=== PATIENT | female | born 1950 | race Hispanic/Latino ===

== ENCOUNTER 2018-03-12 00:41 | Emergency (ER) | payer OTHER ==
[2018-03-12 01:24] LABS: BASOPHILS % (AUTO) 0.8 % (0.0-5.0); EOSINOPHILS % (AUTO) 1.5 % (0.0-8.0); HEMATOCRIT 46.6 % (36-48); LYMPHOCYTES % (AUTO) 26.3 % (21.0-51.0); MEAN CORPUSCULAR HEMOGLOBIN 30.2 pg (27.0-33.0); MEAN CORPUSCULAR HGB CONC 33.5 g/dL (32.0-36.0); MEAN CORPUSCULAR VOLUME 90.2 fL (79-99); MONOCYTES % (AUTO) 6.8 % (3.0-13.0); NEUTROPHILS % (AUTO) 64.6 % (40.0-77.0); NUCLEATED RED BLOOD CELLS 0.1 % (0.0-0.19); PLATELET COUNT (AUTO) 175 K/uL (130-400); RED BLOOD CELL COUNT(AUTO) 5.16 MIL/uL (4.00-5.50); RED CELL DISTRIBUTION WIDTH 13.3 % (11.0-15.5); WHITE BLOOD COUNT (AUTO) 10.7 K/uL (4.8-10.8)
[2018-03-12 01:25] LABS: CREATININE 0.6 mg/dL (0.5-1.5); POTASSIUM 5.4 mmol/L (3.5-5.1)
[2018-03-12] MEDS ORDERED: SODIUM POLYSTYRENE SULFONATE 15 GM/60 ML ML ONE (01:33)
[2018-03-12 01:38] LABS: BILIRUBIN,URINE Negative (NEGATIVE); COLOR,URINE Yellow (YELLOW); GLUCOSE, URINE (UA) 250 mg/dL (NEGATIVE); KETONES,URINE Negative (NEGATIVE); LEUKOCYTE ESTERASE ,URINE Small (NEGATIVE); NITRATE,URINE Negative (NEGATIVE); OCCULT BLOOD,URINE Negative (NEGATIVE); PROTEIN,URINE Negative (NEGATIVE)
[2018-03-12 01:40] LABS: APPEARANCE,URINE SLIGHTLY CLOUDY (CLEAR)
[2018-03-12 01:41] LABS: BACTERIA,URINE Few /HPF (None Seen); RBC,URINE 0-1 /HPF (0-1); SQUAMOUS EPITHELIAL CELL,UR Rare /HPF (0-2)
[2018-03-12] MEDS ORDERED: CEFTRIAXONE SODIUM 1 GM ONE (01:50)
[2018-03-12] MEDS ORDERED: ACETAMINOPHEN-CODEINE ELIXIR 5 ML UDCUP ONE (01:50)
== END 2018-03-12 02:21 | disposition home or self-care (01) ==
LOC: EDH 00:41
DX: N39.0 Urinary tract infection, site not specified (principal); E11.9 Type 2 diabetes mellitus without complications; Z90.49 Acquired absence of other specified parts of digestive tract; Z90.710 Acquired absence of both cervix and uterus; Z98.890 Other specified postprocedural states
CPT/HCPCS: 36415; 80048; 81001; 85025; 96374; 99284; J0696

== ENCOUNTER → 2019-08-27 | Outpatient (CLI) | payer OTHER | END | disposition home or self-care (01) | LOC: OIH 13:31 | PROVIDERS: ATTEND Family Medicine | DX: I10 Essential (primary) hypertension (principal) | CPT/HCPCS: 71046 ==

== ENCOUNTER → 2023-09-28 | Outpatient (CLI) | payer OTHER | END | disposition home or self-care (01) | LOC: RAH 08:47 | PROVIDERS: ATTEND Internal Medicine | DX: Z12.31 Encounter for screening mammogram for malignant neoplasm of breast (principal) | CPT/HCPCS: 77067 ==

== ENCOUNTER → 2023-11-17 | Outpatient (CLI) | payer OTHER | END | disposition home or self-care (01) | LOC: RAH 09:37 | PROVIDERS: ATTEND Internal Medicine | DX: M48.062 Spinal stenosis, lumbar region with neurogenic claudication (principal); M47.816 Spondylosis without myelopathy or radiculopathy, lumbar region; M51.36 Other intervertebral disc degeneration, lumbar region | CPT/HCPCS: 72148 ==

== ENCOUNTER → 2024-01-24 | Outpatient (CLI) | payer OTHER | END | disposition home or self-care (01) | LOC: RAH 14:14 | PROVIDERS: ATTEND Internal Medicine | DX: M81.0 Age-related osteoporosis without current pathological fracture (principal) | CPT/HCPCS: 77080 ==

== ENCOUNTER 2024-12-06 17:25 | Inpatient (IN) | payer OTHER ==
[~2024-12-06] VITALS: Ht 154.9 cm; Wt 91.6 kg
--- NOTE | 2024-12-06 17:32 | ERN ---
ED Note History of Present Illness Stated Complaint: ALLERGIC REACTION Chief Complaint: Allergic Reaction Time Seen by MD: 17:26 Time Seen by Midlevel: 17:30 Dictation: Ms. Crowe is a 74 year old female with history of obesity, hypertension and type II DM who was transported via EMS to the Emergency Department this evening for evaluation following allergic reaction. She states that she had been experiencing 24 hours of chills, fatigue, general weakness, and cough. She states that multiple family members also with upper respiratory symptoms. She decided to take another person's Amoxicillin 15ml despite history of penicillin allergy. She developed shortness of breath, nausea, and flushing of the skin. EMS was called and they administered doses Benadryl and Epi. She states she is feeling better at this time. Vital signs are stable. No angioedema; airway patent. Voice clear. No wheezing. She denies fever, chest pain, palpitations, edema, abdominal pain, vomiting, hematemesis, constipation, diarrhea, melena, hematochezia, dysuria, headache, dizziness, or focal weakness/paresthesia. UPDATE: She is now complaining of bilateral hip and left shoulder pain after a fall at home. X-rays ordered. 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 Reports 24 hours of "feeling ill". Reports fatigue, general weakness, and chills. She mentions several family members with upper respiratory infection symptoms. EYES: Patient denies any visual symptoms. EARS, NOSE, AND THROAT: No difficulties with hearing. No symptoms of rhinitis or sore throat. CARDIOVASCULAR: Patient denies chest pains, palpitations, orthopnea and paroxysmal nocturnal dyspnea. RESPIRATORY Reports nonproductive cough x 24 hours. Reports shortness of breath and wheezing after taking amoxicillin. GI: No vomiting, diarrhea, constipation, abdominal pain, hematochezia or melena. Reported nausea. : No urinary hesitancy or dribbling. No nocturia or urinary frequency. No abnormal urethral discharge. MUSCULOSKELETAL: She is reporting pain to both hips as well as left shoulder after a fall earlier today. NEUROLOGIC: No chronic headaches, no seizures. Patient denies numbness, tingling or weakness. PSYCHIATRIC: Patient denies problems with mood disturbance. No problems with anxiety. ENDOCRINE: No excessive urination or excessive thirst. DERMATOLOGIC: Reports skin flushed/red after taking dose liquid Amoxicillin (hx penicillin allergy) Initial Vital Sign VS Vital Signs Date Time Temp Pulse Resp B/P (MAP) Pulse Ox O2 Delivery O2 Flow Rate FiO2 12/06/24 17:29 99.0 107 20 110/54 98 Room Air 12/06/24 18:54 0 21 Physical Exam Dictation Vital signs: Reviewed. Afebrile; temperature 99.0 Constitutional: No acute distress. Ill-appearing Head/Face: Normocephalic, atraumatic. No angioedema. Eyes: Periorbital areas with no swelling, redness, or edema. Lids and lashes are normal. Conjunctival injection is absent. Sclera anicteric. Pupils equal, round, reactive to light. ENT: Pinnas intact and no signs of trauma or erythema. Ear canals clear and no discharge. TMs no erythema. No nasal discharge or bleeding noted. Oropharynx with no exudate, redness, swelling, masses, exudates, or evidence of obstruction. Uvula midline. Mucous membranes slightly dry. Voice is clear. Airway is patent. Neck: Trachea midline, no masses palpated, and no cervical lymphadenopathy. No swelling. Supple, full range of motion. Chest/Axilla: No tenderness, no crepitus, no paradoxical movement, no retractions. Cardiovascular: Regular rate, regular rhythm, no murmur, no gallops. Symmetric pulses. No peripheral edema. Normotensive; BP 110/54.. clinical research monitor reflects a sinus tachycardia; rate 107. Respiratory: Respirations even and unlabored. Lung sounds clear; no wheezes, rales or rhonchi. Room air SpO2 98%. Gastrointestinal: Inspection is normal. No distention is appreciated. Bowel sounds are normal. No mass or organomegaly . There is no tenderness. No rebound. No rigidity. No voluntary or involuntary guarding. No Medrano's sign. : negative CVA tenderness bilaterally. Urine with strong odor. Neurological: Normal speech, gross motor function intact, gross sensory function intact. No focal weakness/Paresthesia. Musculoskeletal/Extremities: All extremities have full range of motion, no pain or tenderness on palpation. Symmetric pulses. Integumentary: Intact. Skin is normal color, warm and dry. No rash. Cap refill less than 3 seconds. Results (Laboratory/Radiology) Laboratory/Radiology Laboratory Tests Test 12/06/24 18:23 12/06/24 19:00 12/06/24 19:23 12/06/24 20:21 White Blood Count 17.2 K/uL (4.8-10.8) H Red Blood Count 4.69 MIL/uL (4.00-5.50) Hemoglobin 14.6 g/dL (12.0-16.0) Hematocrit 42.9 % (36-48) Mean Corpuscular Volume 91.5 fL (79-99) Mean Corpuscular Hemoglobin 31.1 pg (27.0-33.0) Mean Corpuscular Hemoglobin Concent 34.0 g/dL (32.0-36.0) Red Cell Distribution Width 13.2 % (11.0-15.5) Platelet Count 242 K/uL (130-400) Mean Platelet Volume 11.1 fL (7.5-10.5) H Immature Granulocyte % (Auto) 1.9 % (0-1) H Neutrophils (%) (Auto) 86.6 % (40.0-77.0) H Lymphocytes (%) (Auto) 8.0 % (21.0-51.0) L Monocytes (%) (Auto) 2.9 % (3.0-13.0) L Eosinophils (%) (Auto) 0.3 % (0.0-8.0) Basophils (%) (Auto) 0.3 % (0.0-5.0) Neutrophils # (Auto) 14.9 K/uL (1.8-7.7) H Lymphocytes # (Auto) 1.4 K/uL (1.0-4.8) Monocytes # (Auto) 0.5 K/uL (0.1-1.0) Eosinophils # (Auto) 0.06 K/uL (0.00-0.70) Basophils # (Auto) 0.05 K/uL (0.00-0.20) Absolute Immature Granulocyte (auto 0.33 K/uL (0-1) Nucleated Red Blood Cells 0.0 % (0.0-0.19) White Cell Morphology Comment See comments Sodium Level 136 mmol/L (136-145) Potassium Level 5.1 mmol/L (3.5-5.1) Chloride Level 102 mmol/L (101-111) Carbon Dioxide Level 21 mmol/L (21-32) Blood Urea Nitrogen 13 mg/dL (7-18) Creatinine 0.7 mg/dL (0.5-1.0) Glomerular Filtration Rate Calc 90 mL/min (>90) Random Glucose 216 mg/dL (70-105) H Lactic Acid Level 5.2 mmol/L (0.8-2.5) H Total Calcium 8.3 mg/dL (8.5-10.1) L Influenza Type A Antigen Negative For Type A Influenza Type B Antigen Negative For Type B SARS-CoV-2, RNA, NAAT NEGATIVE SARS CoV-2 Whole Blood Glucose 187 MG/DL (70-110) H Urine Color LIGHT-YELLOW (YELLOW) Urine Appearance CLOUDY (CLEAR) H Urine pH 6.0 (5.0-8.0) Urine Specific [place] 1.011 (1.001-1.031) Urine Protein 30 mg/dL (NEGATIVE) H Urine Glucose (UA) TRACE mg/dL (NEGATIVE) H Urine Ketones NEGATIVE mg/dL (NEGATIVE) Urine Occult Blood +- (TRACE) (NEGATIVE) H Urine Nitrate NEGATIVE (NEGATIVE) Urine Bilirubin NEGATIVE mg/dL (NEGATIVE) Urine Urobilinogen 0.2 mg/dL (0.2-1.0) Urine Leukocyte Esterase 25 Juan Pablo/uL (NEGATIVE) H Labs Reviewed?: Yes X-RAY Comment: PATIENT: LUIS DANIEL CROWE MR#: [id number] : 1950 SEX: F AGE: 74 LOCATION: [facility] [address] ORDER 50 STATUS: [facility] REPORT#: [id number] SERVICE 49 REASON: cough ORDERING PHYSICIAN: MARTINA BASSETT NP PROCEDURE: CXR1VW - CHEST 1VW CHEST 1VW HISTORY: Cough COMPARISON: 08/27/2019 FINDINGS: The study is limited due to patient's large body habitus. A frontal projection of the chest was obtained. No acute pulmonary infiltrates is seen. The heart is normal in size. No evidence of aortic calcification is seen. IMPRESSION: 1. No acute pulmonary infiltrate is seen. DICTATED BY: LUIS FELIPE VILLA MD DATE: 12/06/241907 ELECTRONICALLY SIGNED BY: LUIS FELIPE VILLA MD DATE: 12/06/241911 ED Course ED Course Orders Procedure Category Date Status Time Cbc With Differential LAB 12/06/24 Complete 17:30 Basic Metabolic Panel LAB 12/06/24 Complete 17:30 Ondansetron 4mg Inj PHA 12/06/24 Complete (Zofran 4mg Inj) 17:30 Urinalysis Profile LAB 12/06/24 In Process 17:30 Lactic Acid LAB 12/06/24 Complete 17:30 Influenza Type A & B, LAB 12/06/24 Complete Rapid 17:30 Covid Rna Naat LAB 12/06/24 Complete 17:30 Famotidine 20mg Vial PHA 12/06/24 Complete (Pepcid 20mg Vial) 17:30 Chest 1vw RAD 12/06/24 Resulted 18:50 *Nursing CPOE 12/06/24 Transmitted Communication: 18:51 Levofloxacin 750 PHA 12/06/24 Complete Mg/D5w 150 Ml 19:00 0.9%Nacl 1000ml (Ns PHA 12/06/24 Complete 1000ml) 19:00 0.9% Nacl 500ml PHA 12/06/24 Complete Iv.Soln (Ns 500ml 20:00 Shoulder Comp 2+Vws Lt RAD 12/06/24 Logged 20:26 Pelvis 1-2vws RAD 12/06/24 Logged 20:26 Current Medications Medications (Trade) Dose Ordered Sig/Eloisa Route PRN Reason Start Time Stop Time Status Last Admin Dose Admin Famotidine (Pepcid 20mg Vial) 20 mg ONCE ONCE IV 12/06/24 17:30 12/06/24 17:35 DC 12/06/24 19:13 Levofloxacin/ Dextrose (LEvaquIN 750 MG/ D5W 150 ML) 750 mg ONCE ONCE IV 12/06/24 19:00 12/06/24 19:01 DC 12/06/24 19:15 Ondansetron HCl (zoFRAN 4MG INJ) 4 mg ONCE ONCE IVP 12/06/24 17:30 12/06/24 17:35 DC 12/06/24 19:13 Sodium Chloride 365 ml @ 0 mls/hr ONCE ONCE IV 12/06/24 20:00 12/06/24 20:01 DC 12/06/24 20:08 Sodium Chloride 1,000 ml @ 0 mls/hr ONCE ONCE IV 12/06/24 19:00 12/06/24 19:01 DC 12/06/24 19:15 Vital Signs Date Time Temp Pulse Resp B/P (MAP) Pulse Ox O2 Delivery O2 Flow Rate FiO2 12/06/24 20:46 92 18 140/83 96 Room Air* 0 21 12/06/24 19:25 92 17 116/60 96 Room Air* 0 21 12/06/24 18:54 64 17 100/44 98 Room Air* 0 21 12/06/24 17:29 99.0 107 20 110/54 98 Room Air Patient arrived tachycardic with heart rate 107, temp 99; normotensive with room air SpO2 96-98%. She had no angioedema and facial flushing had resolved upon arrival to ED. chest x-ray unremarkable with clear lung llamas. Laboratory findings as noted below. Influenza/COVID negative. WBCs 17.2, initial lactic acid 5.2, glucose 216, and Ca 8.3. Troponin negative. UA cloudy; + protein, glucose, blood and leukocyte esterase. UCX/BCX pending. While in the ED she received doses Pepcid, Zofran, Levaquin and NS 1365 ml IV as bolus (30ml/kg ideal body weight) she now reports some pain to both hips and left shoulder which she states began after she had a fall in her home earlier today. X-ray pelvis and left shoulder has been ordered. Findings were discussed with Lisette Darby NP who accepts patient for admission to [facility]. Medical Decision Making MDM MDM: Differential diagnosis: anaphylaxis, UTI, sepsis, CAP, influenza, COVID Rationale: Tests considered and ordered secondary to shared decision making include: labs, ECG and radiology Previous outside records reviewed: Old ER visits. Risk of complication and/or morbidity or mortality of patient management: None Medications-Per medication reconciliation Need for hospitalization: Patient does meet criteria for hospitalization. Need for emergency major/minor surgery: No There are no social concerns with this patient. Prescription drug management Prescriptions will include symptomatic care Patient's prior external medical records from other ER visits were reviewed by me as indicated. Prior testing and results from previous visits were reviewed. Prior tests were taken into account with medical decision making and resource utilization, independent historian/historians were used to obtain complete medical history. I independently interpreted the test that were performed, results were reviewed by me and considered findings on radiology if ordered. Medical management and examination interpretation discussions were had by me with other qualified healthcare professionals as indicated for the patient's care. DX & DISP Disposition: Observation Departure Impression: Primary Impression: Lactic acidosis Additional Impressions: Leukocytosis, Type 2 diabetes mellitus with hyperglycemia, Allergic reaction to penicillin, UTI (urinary tract infection), Fall Condition: Stable Assign Patient to: Dr. Joe Baldwin Referrals: TEETEE WRIGHT MD (PCP) MARTINA BASSETT NP Dec 06, 2024 17:32
[2024-12-06 18:39] LABS: BASOPHILS # (AUTO) 0.05 K/uL (0.00-0.20); BASOPHILS % (AUTO) 0.3 % (0.0-5.0); EOSINOPHILS # (AUTO) 0.06 K/uL (0.00-0.70); EOSINOPHILS % (AUTO) 0.3 % (0.0-8.0); HEMATOCRIT 42.9 % (36-48); IMMATURE GRANULOCYTE ABSOLUTE 0.33 K/uL (0-1); LYMPHOCYTES # (AUTO) 1.4 K/uL (1.0-4.8); MEAN CORPUSCULAR HEMOGLOBIN 31.1 pg (27.0-33.0); MEAN CORPUSCULAR VOLUME 91.5 fL (79-99); MONOCYTES # (AUTO) 0.5 K/uL (0.1-1.0); MONOCYTES % (AUTO) 2.9 % (3.0-13.0); NEUTROPHILS # (AUTO) 14.9 K/uL (1.8-7.7); NEUTROPHILS % (AUTO) 86.6 % (40.0-77.0); PLATELET COUNT (AUTO) 242 K/uL (130-400); RED BLOOD CELL COUNT(AUTO) 4.69 MIL/uL (4.00-5.50); RED CELL DISTRIBUTION WIDTH 13.2 % (11.0-15.5); WHITE BLOOD COUNT (AUTO) 17.2 K/uL (4.8-10.8)
[2024-12-06 18:42] LABS: CREATININE 0.7 mg/dL (0.5-1.0); POTASSIUM 5.1 mmol/L (3.5-5.1)
--- NOTE | 2024-12-06 19:12 | HMCIMG ---
CHEST 1VW HISTORY: Cough COMPARISON: 08/27/2019 FINDINGS: The study is limited due to patient's large body habitus. A frontal projection of the chest was obtained. No acute pulmonary infiltrates is seen. The heart is normal in size. No evidence of aortic calcification is seen. IMPRESSION: 1. No acute pulmonary infiltrate is seen.
[2024-12-06] MEDS: ondanSETRON 4MG INJ IVP ONE (19:13)
[2024-12-06] MEDS: FAMOTIDINE 20MG VIAL IV ONE (19:13)
[2024-12-06] MEDS: 0.9%NACL 1000ML 1,000 ML IV ONE (19:15)
[2024-12-06] MEDS: levoFLOXacin 750 MG/D5W 150ML BAG IV ONE (19:15)
[2024-12-06 19:40] LABS: SARS-CoV-2, RNA, NAAT NEGATIVE SARS CoV-2 (NEGATIVE)
[2024-12-06 19:45] LABS: INFLUENZA TYPE A Negative For Type A (NEGATIVE); INFLUENZA TYPE B Negative For Type B (NEGATIVE)
[2024-12-06 20:28] LABS: APPEARANCE,URINE CLOUDY (CLEAR); BILIRUBIN,URINE NEGATIVE (NEGATIVE); COLOR,URINE LIGHT-YELLOW (YELLOW); GLUCOSE, URINE (UA) TRACE mg/dL (NEGATIVE); KETONES,URINE NEGATIVE (NEGATIVE); LEUKOCYTE ESTERASE ,URINE 25 Leu/uL (NEGATIVE); NITRATE,URINE NEGATIVE (NEGATIVE); PROTEIN,URINE 30 mg/dL (NEGATIVE); UROBILINOGEN,URINE 0.2 mg/dL (0.2-1.0)
[2024-12-06 20:43] LABS: ADD UA MICROSCOPIC YES
[2024-12-06 20:53] LABS: BACTERIA,URINE MOD /HPF (None Seen); MUCUS,URINE RARE LPF (None Seen); OTHER CASTS, URINE 4 /LPF (None Seen); RBC,URINE 0-1 /HPF (0-1); SQUAMOUS EPITHELIAL CELL,UR FEW /HPF (0-2); UNCLASSIFIED CRYSTAL 2 /HPF (None Seen)
--- NOTE | 2024-12-06 21:21 | HMCIMG ---
SHOULDER COMP 2+VWS LT INDICATION: POST FALL TECHNIQUE: SHOULDER COMP 2+VWS LT. FINDINGS AND IMPRESSION: No displaced fracture or dislocation is seen. Correlate clinically. There is mild soft tissue swelling No radiopaque foreign body is identified. There is diffuse osteopenia limiting evaluation of the study.
--- NOTE | 2024-12-06 21:22 | HMCIMG ---
PELVIS 1-2VWS HISTORY: POST FALL TECHNIQUE: Frontal view of the pelvis was performed. FINDINGS AND IMPRESSION: No displaced fracture or dislocation is identified. Correlate clinically. The visualized soft tissues appear grossly within normal limits. Diffuse osteopenia is seen degrading evaluation of the study. Degenerative changes of the visualized spine are seen.
--- NOTE | 2024-12-06 21:56 | HP ---
[facility] HISTORY & PHYSICAL Date Patient Seen: Dec 06, 2024 Time of Visit: 21:48 Supervising Physician: DR. ROWDY ALFONSO Primary Care Physician: DR. ADRIANA KINGSLEY Outpatient Specialists: [ ] Inpatient Consults: [ ] PROBLEM LIST: 1. DIABETES TYPE 2 UNCONTROLLED 2. ACUTE COMPLICATED CYSTITIS 3. SEVERE SEPSIS WITHOUT SHOCK 4. ALLERGIC REACTION 5. MORBID OBESITY 6. UNSTEADY GAIT CHIEF COMPLAINT: Allergic reaction HPI: Patient is a 74-year-old female with past medical history significant for diabetes type 2, hypertension, hyperlipidemia, and a surgical history of hysterectomy, cholecystectomy, brought to the emergency department via EMS for evaluation of allergic reaction. Patient reports that for the past two days, multiple family member has been having upper respiratory symptoms and she decided to take amoxicillin for herself due to upper respiratory symptoms. Patient developed shortness of breath, flushing to the skin following the amoxicillin p.o. intake. Patient reports that she forgot that she was allergic to amoxicillin. Per ER report, patient received epinephrine and Benadryl EN route at the time of the assessment, patient reports feeling better and all the allergic symptoms resolved. Patient denies fever, chills, nausea, vomiting, diarrhea, palpitation, shortness of breath, diarrhea, constipation, dysuria, or any other symptoms. The workup in the emergency department shows a temperature of 99, heart rate of 107, WBC of 17.2, glucose of 187, lactic acid of 5.2, UA shows UTI. In the emergency department, patient received NS 30 mL/kilogram bolus and Levaquin 750 mg IV. Patient will be admitted to medical floor for further evaluation and treatment. PAST MEDICAL HX: see above PAST SURGICAL HX: noncontributory SOCIAL HISTORY: No tobacco, ETOH, or illicit drug use Coded Allergies: amoxicillin (Unverified Allergy, Unknown, 12/06/24) REVIEW OF SYSTEMS: 12 point ROS reviewed with patient. Pertinent positives mentioned above. Otherwise negative. PHYSICAL EXAM: GENERAL: alert, weak, awake oriented x 3 HEENT: EOMI, Sclera non icteric, moist mucosa NECK: Supple, no JVD, trachea midline LUNGS: Clear breath sounds bilaterally. No wheezes HEART: Regular rate and rhythm. Normal S1 and S2, without murmurs ABD: Abdomen soft, nontender. Bowel sounds present EXT: No clubbing cyanosis or edema NEURO: Alert and oriented to person, follows commands Vital Signs (last 8hr) Date Time Temp Pulse Resp B/P (MAP) Pulse Ox O2 Delivery O2 Flow Rate FiO2 12/06/24 20:46 92 18 140/83 96 Room Air* 0 21 12/06/24 19:25 92 17 116/60 96 Room Air* 0 21 12/06/24 18:54 64 17 100/44 98 Room Air* 0 21 12/06/24 17:29 99.0 107 20 110/54 98 Room Air LABS: Hematology Labs: Test 12/06/24 18:23 Range/Units White Blood Count 17.2 H 4.8-10.8 K/uL Red Blood Count 4.69 4.00-5.50 MIL/uL Hemoglobin 14.6 12.0-16.0 g/dL Hematocrit 42.9 36-48 % Mean Corpuscular Volume 91.5 79-99 fL Mean Corpuscular Hemoglobin 31.1 27.0-33.0 pg Mean Corpuscular Hemoglobin Concent 34.0 32.0-36.0 g/dL Red Cell Distribution Width 13.2 11.0-15.5 % Platelet Count 242 130-400 K/uL Mean Platelet Volume 11.1 H 7.5-10.5 fL Immature Granulocyte % (Auto) 1.9 H 0-1 % Neutrophils (%) (Auto) 86.6 H 40.0-77.0 % Lymphocytes (%) (Auto) 8.0 L 21.0-51.0 % Monocytes (%) (Auto) 2.9 L 3.0-13.0 % Eosinophils (%) (Auto) 0.3 0.0-8.0 % Basophils (%) (Auto) 0.3 0.0-5.0 % Neutrophils # (Auto) 14.9 H 1.8-7.7 K/uL Lymphocytes # (Auto) 1.4 1.0-4.8 K/uL Monocytes # (Auto) 0.5 0.1-1.0 K/uL Eosinophils # (Auto) 0.06 0.00-0.70 K/uL Basophils # (Auto) 0.05 0.00-0.20 K/uL Absolute Immature Granulocyte (auto 0.33 0-1 K/uL Nucleated Red Blood Cells 0.0 0.0-0.19 % White Cell Morphology Comment See comments Chemistry Labs: Test 12/06/24 19:23 12/06/24 18:23 Range/Units Whole Blood Glucose 187 H 70-110 MG/DL Sodium Level 136 136-145 mmol/L Potassium Level 5.1 3.5-5.1 mmol/L Chloride Level 102 101-111 mmol/L Carbon Dioxide Level 21 21-32 mmol/L Blood Urea Nitrogen 13 7-18 mg/dL Creatinine 0.7 0.5-1.0 mg/dL Glomerular Filtration Rate Calc 90 >90 mL/min Random Glucose 216 H 70-105 mg/dL Lactic Acid Level 5.2 H 0.8-2.5 mmol/L Total Calcium 8.3 L 8.5-10.1 mg/dL DIAGNOSTICS / RADIOLOGY RESULTS: [ ] PLAN NEURO: Minimize central acting medications as possible. Maintain fall precautions, adequate lighting during the day PULMONARY: Supplemental 02 as needed. Maintain aspiration precautions at all times CARDIOVASCULAR: Follow hemodynamics. Vital signs per facility protocol GI & NUTRITION: Continue with nutritional support. Continue stool softeners and laxatives as needed. KIDNEYS & ELECTROLYTES: Strict monitoring of intake, output and overall fluid balance. Avoid nephrotoxic medications to the extent possible. Medications to be dosed according to renal function. Monitor electrolytes and replace as needed ENDOCRINE: Maintain blood glucose between 100-180 at all times. Hypoglycemia protocol in place Hemoglobin A1c INFECTIOUS DISEASE: Trend temperature, WBC and procalcitonin level Follow cultures, deescalate antibiotics as soon as possible. Panculture if new onset fever Urine culture Levaquin 750 mg IV daily ONCOLOGY/HEMATOLOGY/COAGULATION: Monitor for s/s of bleeding Monitor hemoglobin, coagulation studies as needed SKIN: Pressure ulcer prevention per facility protocol Specialty mattress ORTHO/REHAB: Continue PT/OT Prophylaxis: Continue GI and DVT prophylaxis Code Status: Full Resuscitation Disposition: TBD Other: Total patient care time exceeds 35 minutes excluding all procedures. Case discussed with Dr.Jairo Alfonso, and the above plan was formulated. YUNIER BEJARANO Dec 06, 2024 21:56
[2024-12-06] MEDS ORDERED: LACTULOSE 20 GM/30 ML UDCUP PO PRN (22:00)
[2024-12-06] MEDS ORDERED: DEXTROSE 50%-WATER 50 ML DISP.SYRIN IV PRN (22:00)
[2024-12-06] MEDS ORDERED: MAG/ALUM/SIMETH 30 ML UDCUP PO PRN (22:00)
[2024-12-06] MEDS ORDERED: acetaMINOPHEN 325 MG TAB PO PRN (22:00)
[2024-12-06] MEDS ORDERED: DiphenhydrAMINE HCL 50 MG/ML VIAL IV PRN (22:00)
[2024-12-06] MEDS ORDERED: guaiFENesin-DM 200/20MG 10ML PO PRN (22:00)
[2024-12-06] MEDS ORDERED: ondanSETRON 4MG INJ IV PRN (22:00)
[2024-12-06] MEDS ORDERED: GLUCAGON 1MG KIT 1 MG ML IM PRN (22:00)
[2024-12-06] MEDS ORDERED: NITROGLYCERIN 0.4 MG SL TAB SL PRN (22:00)
--- NOTE | 2024-12-06 23:20 | NUR ---
LATE ENTRY NOTIFIED DOCTOR LUISA / MARTINA BASSETT AT 1832 OF LACTIC ACID OF 5.2 , NEW ORDERS PLACED LATE ENTRY AT 2150 NOTIFIED DOCTOR CARLEE LACTIC ACID 3.0 , NO NEW ORDERS
[2024-12-07] MEDS: HYDROcodone/APAP 5/325 1 TAB TABLET PO PRN (00:01)
[2024-12-07] MEDS: 0.9%NACL 1000ML 1,000 ML IV SCH (00:11)
[2024-12-07] MEDS: INSULIN humuLIN R 100 UNIT/ML 3ML SQ SCH (07:30)
[2024-12-07 09:05] LABS: HEMATOCRIT 38.5 % (36-48); MEAN CORPUSCULAR VOLUME 91.2 fL (79-99); RED BLOOD CELL COUNT(AUTO) 4.22 MIL/uL (4.00-5.50); RED CELL DISTRIBUTION WIDTH 13.1 % (11.0-15.5); WHITE BLOOD COUNT (AUTO) 11.7 K/uL (4.8-10.8)
[2024-12-07 09:25] LABS: BILIRUBIN,TOTAL 0.8 mg/dL (0.2-1.0); CREATININE 0.6 mg/dL (0.5-1.0); POTASSIUM 3.7 mmol/L (3.5-5.1); TOTAL PROTEIN, SERUM 6.6 g/dL (6.0-8.3)
--- NOTE | 2024-12-07 09:31 | NUR ---
PATIENT DOES NOT HAVE HOME MEDS AT BEDSIDE
--- NOTE | 2024-12-07 09:46 | NUR ---
DCP: HOME Pt states she fell at home after taking grand daughter's medication and having a reaction. Pt lives with her daughter Berta Torres [phone] and 3 grand daughters in an apt. Pt denies issues affording apt, utilities or food. Prior to fall pt states she was independent of all ADLS, home management and meal prep. Pt had no in home care services or HD. PCP is Pepe Ponce and uses [facility] for rx needs. Pt denies need for SNF, states she will return home at dc Addendum: 12/07/24 at 1013 by ROSENDO COLE Amended: Links added.
[2024-12-07] MEDS: FAMOTIDINE 20MG TAB PO SCH (09:49)
[2024-12-07] MEDS: ENOXAPARIN SODIUM 40 MG/0.4 ML SYRINGE SQ SCH (09:56)
--- NOTE | 2024-12-07 10:41 | PN ---
[facility] PROGRESS NOTE Date Patient Seen: Dec 07, 2024 Time of Visit: 10:41 Supervising Physician: Dr. Joe Baldwin Primary Care Physician: DR. ADRIANA KINGSLEY Outpatient Specialists: [ ] Inpatient Consults: Dr. Galeas (Orthopedic surgeon) PROBLEM LIST: Allergic reaction to amoxicillin Pre-syncope episode S/P fall at home due to above Acute comminuted fractures to distal radius and distal ulna Acute cystitis Leukocytosis present on admission Diabetes mellitus type 2 Hypertension Hyperlipidemia Morbid obesity, BMI 39.3 INTERVAL HISTORY: Patient assessed at bedside in ER. AAOX3. Currently on room air. Complains of left wrist pain. X-ray ordered which showed radial and ulnar fractures. Orthopedic surgeon consulted. Patient states that after she took amoxicillin, she felt warm and fell to the floor and hit her head. CT head and US carotid with acute findings. Denies any chest pain, dizziness, abdominal pain, nausea or vomiting. Brother at bedside. REVIEW OF SYSTEMS: 12 point ROS reviewed with patient. Pertinent positives mentioned above. Otherwise negative. PHYSICAL EXAM: GENERAL: alert, weak, awake oriented x 3 HEENT: EOMI, Sclera non icteric, moist mucosa NECK: Supple, no JVD, trachea midline LUNGS: Clear breath sounds bilaterally. No wheezes HEART: Regular rate and rhythm. Normal S1 and S2, without murmurs ABD: Abdomen soft, nontender. Bowel sounds present EXT: No clubbing cyanosis or edema NEURO: Alert and oriented to person, follows commands Vital Signs (last 8hr) Date Time Temp Pulse Resp B/P (MAP) Pulse Ox O2 Delivery O2 Flow Rate FiO2 12/07/24 07:32 98.2 82 11 127/66 100 Room Air* 0 21 12/07/24 06:02 98.4 88 17 141/70 97 Room Air* 0 21 12/07/24 05:08 79 16 146/69 98 Room Air* 0 21 LABS: Hematology Labs: Test 12/07/24 08:54 12/06/24 18:23 Range/Units White Blood Count 11.7 #H 4.8-10.8 K/uL Red Blood Count 4.22 4.00-5.50 MIL/uL Hemoglobin 13.1 12.0-16.0 g/dL Hematocrit 38.5 36-48 % Mean Corpuscular Volume 91.2 79-99 fL Mean Corpuscular Hemoglobin 31.0 27.0-33.0 pg Mean Corpuscular Hemoglobin Concent 34.0 32.0-36.0 g/dL Red Cell Distribution Width 13.1 11.0-15.5 % Platelet Count 218 130-400 K/uL Mean Platelet Volume 10.5 7.5-10.5 fL Nucleated Red Blood Cells 0.0 0.0-0.19 % Immature Granulocyte % (Auto) 1.9 H 0-1 % Neutrophils (%) (Auto) 86.6 H 40.0-77.0 % Lymphocytes (%) (Auto) 8.0 L 21.0-51.0 % Monocytes (%) (Auto) 2.9 L 3.0-13.0 % Eosinophils (%) (Auto) 0.3 0.0-8.0 % Basophils (%) (Auto) 0.3 0.0-5.0 % Neutrophils # (Auto) 14.9 H 1.8-7.7 K/uL Lymphocytes # (Auto) 1.4 1.0-4.8 K/uL Monocytes # (Auto) 0.5 0.1-1.0 K/uL Eosinophils # (Auto) 0.06 0.00-0.70 K/uL Basophils # (Auto) 0.05 0.00-0.20 K/uL Absolute Immature Granulocyte (auto 0.33 0-1 K/uL White Cell Morphology Comment See comments Chemistry Labs: Test 12/07/24 08:54 12/07/24 08:27 12/06/24 21:51 Range/Units Sodium Level 138 136-145 mmol/L Potassium Level 3.7 3.5-5.1 mmol/L Chloride Level 104 101-111 mmol/L Carbon Dioxide Level 24 21-32 mmol/L Blood Urea Nitrogen 11 7-18 mg/dL Creatinine 0.6 0.5-1.0 mg/dL Glomerular Filtration Rate Calc 93 >90 mL/min Random Glucose 155 H 70-105 mg/dL Total Calcium 8.3 L 8.5-10.1 mg/dL Total Bilirubin 0.8 0.2-1.0 mg/dL Aspartate Amino Transf (AST/SGOT) 24 10-37 U/L Alanine Aminotransferase (ALT/SGPT) 28 12-78 U/L Alkaline Phosphatase 90 50-136 U/L C-Reactive Protein, Quantitative 18.10 H 0.5-3.0 mg/L Total Protein 6.6 6.0-8.3 g/dL Albumin 3.0 L 3.5-5.0 g/dL Whole Blood Glucose 147 H 70-110 MG/DL Lactic Acid Level 3.0 H 0.8-2.5 mmol/L B-Type Natriuretic Peptide 27 0-100 pg/mL DIAGNOSTICS / RADIOLOGY RESULTS: PROCEDURE: WRST 3V LT - WRIST COMP 3+VWS LT WRIST COMP 3+VWS LT HISTORY: Left wrist pain COMPARISON: None TECHNIQUE: 3 images of left wrist were obtained. FINDINGS: Comminuted fractures are seen involving the distal radius with articular extension. There is fracture involving the distal ulna. No dislocation is seen. Degenerative changes are seen. IMPRESSION: 1. Findings as described above. PLAN NEURO: Minimize central acting medications as possible. Maintain fall precautions, adequate lighting during the day PULMONARY: Supplemental 02 as needed. Maintain aspiration precautions at all times CARDIOVASCULAR: Follow hemodynamics. Vital signs per facility protocol GI & NUTRITION: Continue with nutritional support. Continue stool softeners and laxatives as needed. KIDNEYS & ELECTROLYTES: Strict monitoring of intake, output and overall fluid balance. Avoid nephrotoxic medications to the extent possible. Medications to be dosed according to renal function. Monitor electrolytes and replace as needed ENDOCRINE: Maintain blood glucose between 100-180 at all times. Hypoglycemia protocol in place Hemoglobin A1c INFECTIOUS DISEASE: Trend temperature, WBC and procalcitonin level Follow cultures, deescalate antibiotics as soon as possible. Panculture if new onset fever Urine culture Levaquin 750 mg IV daily for cystitis ONCOLOGY/HEMATOLOGY/COAGULATION: Monitor for s/s of bleeding Monitor hemoglobin, coagulation studies as needed SKIN: Pressure ulcer prevention per facility protocol Specialty mattress ORTHO/REHAB: Continue PT/OT Prophylaxis: Continue GI and DVT prophylaxis Pepcid and lovenox Code Status: Full Resuscitation Disposition: TBD Case discussed with Dr.Jairo Baldwin, and the above plan was formulated. IOANA BALDWIN NP Dec 07, 2024 10:41
--- NOTE | 2024-12-07 12:59 | HMCIMG ---
WRIST COMP 3+VWS LT HISTORY: Left wrist pain COMPARISON: None TECHNIQUE: 3 images of left wrist were obtained. FINDINGS: Comminuted fractures are seen involving the distal radius with articular extension. There is fracture involving the distal ulna. No dislocation is seen. Degenerative changes are seen. IMPRESSION: 1. Findings as described above.
--- NOTE | 2024-12-07 13:23 | HMCIMG ---
CT HEAD/BRAIN W/O CONTRAST HISTORY: Status post fall COMPARISON: None TECHNIQUE: Multiple sequential axial images of the head were obtained from the base of the skull through vertex. Patient was not given contrast through intravenous route. FINDINGS: The ventricles and extraventricular CSF spaces are dilated consistent with cerebral atrophy. Nonspecific white matter changes seen. There is no midline shift, mass effect or herniation. No acute intracranial bleed is seen. Visualized portion of the paranasal sinuses are grossly within normal limits. IMPRESSION: 1. No acute intracranial bleed is seen. 2. Atrophy with white matter changes. CT was performed with one or more following dose reduction techniques: automated exposure control, adjustment of the mA and kv according to patient's size, or use of a iterative reconstruction technique.
--- NOTE | 2024-12-07 14:35 | NUR ---
PER DR SIEGEL TO APPLY SUGAR TONGUE SPLINT
--- NOTE | 2024-12-07 15:00 | HMCSR ---
APPROVED REPORT EXAM: Two-dimensional and M-mode echocardiogram with Doppler and color Doppler. INDICATION ICD: presyncope 2D Dimensions RVDd3.3 cmLVEF(%)63.3 (>50%)LVED Vol(simp.)58.0 mL IVSd0.8 (0.7-1.1cm)FS(%)34 %LVES Vol(simp.)30.0 mL LVDd3.9 (3.8-5.6cm)LA (2D)3.9 (1.6-4.0cm)LVEF(%, simp.)48 % PWd0.9 (0.7-1.1cm)Ao Root(2D)2.5 (2.0-3.7cm)LA ESV INDEX (BP)21.71 mL/m2 LVDs2.6 (2.5-4.0cm)LVOT diam1.8 (1.8-2.4cm) IVC diam1.5 cm Deformation Strain Apical 4-14.5 % Apical 2-15.5 % Apical 3-17.2 % Global Strain-15.7 % M-Mode Dimensions EPSS0.6 cm LA (MM)3.9 (1.6-4.0cm) Ao Root(MM)2.4 (2.0-3.7cm) Aortic Valve AoV Vmax1.6 m/Arline Peak GR10.1 mmHgLVOT Vmax1.0 m/s AoV VTI0.3 mAo Mean GR5.4 mmHgLVOT VTI0.23 m ETHAN (VMAX)1.71 cm2AVA (VTI) 1.8 cm2 Mitral Valve MV E Vmax94.8 cm/sDECEL Luuf114 ms MV A Cuhb436.3 cm/sP 1/2 T52 ms E/A ratio0.8MVA (PHT)4.2 cm2 TDI E/E' Ozyori96.1E/E' Lhlowjd35.2 Medial E' Peak V7.25 cm/sLateral E' Peak V7.75 cm/s Pulmonary Valve PV Vmax0.9 m/sPV VTI0.20 mPV Mean GR1.6 mmHg PV Peak GR3.3 mmHg Tricuspid Valve TR Vmax2.2 m/sRVSP18.0 mmHg TR Peak GR20.4 mmHg Left Ventricle The left ventricle is normal size. global strain of -16%. There is normal left ventricular wall thick ness. LVEF is 50-55%. Stage I diastolic dysfunction. Right Ventricle The right ventricle is normal size. The right ventricular systolic function is normal. Atria The left atrium size is normal. The right atrium size is normal. Aortic Valve The aortic valve is normal in structure. No aortic regurgitation is present. There is no aortic valvu lar stenosis. Mitral Valve The mitral valve is normal in structure. There is no mitral valve regurgitation noted. There is no mi tral valve stenosis. Tricuspid Valve The tricuspid valve is normal in structure. There is trace tricuspid valve regurgitation noted. Pulmonic Valve The pulmonary valve is normal in structure. There is no pulmonic valvular regurgitation. Great Vessels The aortic root is normal in size. The IVC is normal in size and collapses <50% with inspiration. Pericardium There is no pericardial effusion. Conclusion LVEF is 50-55%. Stage I diastolic dysfunction. global strain of -16%.
--- NOTE | 2024-12-07 17:00 | HMCIMG ---
US CAROTID DUPLEX HISTORY: Syncope COMPARISON: None TECHNIQUE: Duplex carotid arterial Doppler ultrasound study was performed. FINDINGS: The common, internal and external carotid arteries are visualized. The peak systolic velocities of right common carotid artery is 67 centimeters per second, right internal carotid artery is 93 centimeters per second, right external carotid artery is 79 centimeters per second, and right vertebral artery is 47 centimeters per second. Right internal carotid artery to right common carotid artery ratio is 1.4. Right vertebral artery is seen with antegrade flow. The peak systolic velocities of left common carotid artery is 76 centimeters per second, left internal carotid artery is 135 centimeters per second, left external carotid artery is 91 centimeters per second, and left vertebral artery is 60 centimeters per second. Left internal carotid artery to left common carotid artery ratio is 1.8. Left vertebral artery is seen with antegrade flow. IMPRESSION: 1. No hemodynamically significant lesion is seen of either extracranial carotid artery system.
--- NOTE | 2024-12-07 18:35 | NUR ---
REPORT GIVEN TO MERI BAÑUELOS, CHARLIE SENT UP WITH PATIENT
[2024-12-07 18:50] VITALS: BP 148/64; PULSE 82; RESP 18; TEMP 98.7
--- NOTE | 2024-12-07 18:50 | NUR ---
Arrival Patient arrived on unit via stretcher and was transferred to bed. Vitals taken and basic assessment completed. Patient oriented to room and call light. Telemetry applied. Patient states that her daughter would be bringing her home medications in later. Patient left resting in no distress with bed in lock and low position and call light in reach.
[2024-12-07 20:00] VITALS: BP 142/76; PULSE 78; RESP 17; TEMP 98.4
[2024-12-07 20:40] VITALS: O2SAT 96
--- NOTE | 2024-12-07 20:40 | NUR ---
MEDS SHIFT ASSESSMENT DONE, PLEASE REFER TO CHART. DUE MEDS ADMINISTERED. IVF AND IV LEVAQUIN HUNG WITH NEW TUBINGS. CHANGED CLOTHES TO HOSPITAL GOWN. KEPT LEFT ARM ON A SLING. KEPT RESTED AND COMFORTABLE IN BED. CALL LIGHT WITHIN REACH. FALL PRECAUTIONS RE-ITERATED.
[2024-12-07] MEDS: levoFLOXacin 750 MG/D5W 150ML BAG IV SCH (20:41)
--- NOTE | 2024-12-07 23:38 | NUR ---
PAIN PT CLAIMS OF PAINS TO LUE AND SHOULDER. FIXED PT'S SLING FOR COMFORT. MEDICATED WITH NORCO PO. KEPT RESTED IN BED. WILL RE-ASSESS PT.
[2024-12-08] VITALS (7 sets, daily range): BP systolic 141–157; BP diastolic 69–86; PULSE 79–92; RESP 16–19; TEMP 97.4–98.7; O2SAT 98
[2024-12-08 06:04] LABS: HEMATOCRIT 35.9 % (36-48); MEAN CORPUSCULAR HEMOGLOBIN 31.2 pg (27.0-33.0); MEAN CORPUSCULAR HGB CONC 34.5 g/dL (32.0-36.0); MEAN CORPUSCULAR VOLUME 90.2 fL (79-99); RED BLOOD CELL COUNT(AUTO) 3.98 MIL/uL (4.00-5.50); RED CELL DISTRIBUTION WIDTH 12.9 % (11.0-15.5); WHITE BLOOD COUNT (AUTO) 8.4 K/uL (4.8-10.8)
--- NOTE | 2024-12-08 06:10 | NUR ---
ASSIST PT SLEPT AT INTERVALS DURING THE SHIFT. PT CALLS, IN NEED TO USE THE RESTROOM. ASSISTED PT TO AND FROM THE RESTROOM BACK TO BED. KEPT COMFORTABLE IN BED. CALL LIGHT WITHIN REACH. FOR MORE CARE.
[2024-12-08 06:35] LABS: ALBUMIN 2.8 g/dL (3.5-5.0); BILIRUBIN,TOTAL 0.6 mg/dL (0.2-1.0); CREATININE 0.5 mg/dL (0.5-1.0); MAGNESIUM 1.7 mg/dL (1.80-2.40); POTASSIUM 3.7 mmol/L (3.5-5.1); THYROID STIMULATING HORMONE 1.92 uIU/mL (0.36-3.74); TOTAL PROTEIN, SERUM 6.2 g/dL (6.0-8.3)
--- NOTE | 2024-12-08 10:48 | PN ---
[facility] PROGRESS NOTE Date Patient Seen: Dec 08, 2024 Time of Visit: 10:47 Supervising Physician: Dr. Miguel A Schneider Primary Care Physician: DR. ADRIANA KINGSLEY Outpatient Specialists: [ ] Inpatient Consults: Dr. Galeas (Orthopedic surgeon) PROBLEM LIST: Allergic reaction to amoxicillin Pre-syncope episode S/P fall at home due to above Acute left distal radius fracture Acute cystitis Leukocytosis present on admission Diabetes mellitus type 2 Hypertension Hyperlipidemia Morbid obesity, BMI 39.3 INTERVAL HISTORY: Patient assessed at bedside. AAOX3. Currently on room air. Complains of left wrist pain that is controlled with current analgesia. Dr. Galeas evaluated patient and ordered for sugar tong long splint Fingers warm with capillary refill <6 seconds. Pending urine culture. CT head and US carotid without acute findings. Denies any chest pain, dizziness, abdominal pain, nausea or vomiting. No family at bedside. Anticipate home in the next 24-48 hours. REVIEW OF SYSTEMS: 12 point ROS reviewed with patient. Pertinent positives mentioned above. Otherwise negative. PHYSICAL EXAM: GENERAL: alert, weak, awake oriented x 3 HEENT: EOMI, Sclera non icteric, moist mucosa NECK: Supple, no JVD, trachea midline LUNGS: Clear breath sounds bilaterally. No wheezes HEART: Regular rate and rhythm. Normal S1 and S2, without murmurs ABD: Abdomen soft, nontender. Bowel sounds present EXT: No clubbing cyanosis or edema NEURO: Alert and oriented to person, follows commands Vital Signs (last 8hr) Date Time Temp Pulse Resp B/P (MAP) Pulse Ox O2 Delivery O2 Flow Rate FiO2 12/08/24 08:00 97.5 79 18 141/69 94 Room Air 21 12/08/24 04:00 98.1 92 16 156/77 97 Room Air 21 LABS: Hematology Labs: Test 12/08/24 05:37 12/06/24 18:23 Range/Units White Blood Count 8.4 # 4.8-10.8 K/uL Red Blood Count 3.98 L 4.00-5.50 MIL/uL Hemoglobin 12.4 12.0-16.0 g/dL Hematocrit 35.9 L 36-48 % Mean Corpuscular Volume 90.2 79-99 fL Mean Corpuscular Hemoglobin 31.2 27.0-33.0 pg Mean Corpuscular Hemoglobin Concent 34.5 32.0-36.0 g/dL Red Cell Distribution Width 12.9 11.0-15.5 % Platelet Count 200 130-400 K/uL Mean Platelet Volume 11.0 H 7.5-10.5 fL Nucleated Red Blood Cells 0.0 0.0-0.19 % Immature Granulocyte % (Auto) 1.9 H 0-1 % Neutrophils (%) (Auto) 86.6 H 40.0-77.0 % Lymphocytes (%) (Auto) 8.0 L 21.0-51.0 % Monocytes (%) (Auto) 2.9 L 3.0-13.0 % Eosinophils (%) (Auto) 0.3 0.0-8.0 % Basophils (%) (Auto) 0.3 0.0-5.0 % Neutrophils # (Auto) 14.9 H 1.8-7.7 K/uL Lymphocytes # (Auto) 1.4 1.0-4.8 K/uL Monocytes # (Auto) 0.5 0.1-1.0 K/uL Eosinophils # (Auto) 0.06 0.00-0.70 K/uL Basophils # (Auto) 0.05 0.00-0.20 K/uL Absolute Immature Granulocyte (auto 0.33 0-1 K/uL White Cell Morphology Comment See comments Chemistry Labs: Test 12/08/24 05:37 12/08/24 05:31 12/07/24 08:54 12/06/24 21:51 Range/Units Sodium Level 141 136-145 mmol/L Potassium Level 3.7 3.5-5.1 mmol/L Chloride Level 108 101-111 mmol/L Carbon Dioxide Level 25 21-32 mmol/L Blood Urea Nitrogen 10 7-18 mg/dL Creatinine 0.5 0.5-1.0 mg/dL Glomerular Filtration Rate Calc 97 >90 mL/min Random Glucose 159 H 70-105 mg/dL Total Calcium 8.4 L 8.5-10.1 mg/dL Magnesium Level 1.70 L 1.80-2.40 mg/dL Total Bilirubin 0.6 # 0.2-1.0 mg/dL Aspartate Amino Transf (AST/SGOT) 23 10-37 U/L Alanine Aminotransferase (ALT/SGPT) 25 12-78 U/L Alkaline Phosphatase 86 50-136 U/L Total Protein 6.2 6.0-8.3 g/dL Albumin 2.8 L 3.5-5.0 g/dL Thyroid Stimulating Hormone (TSH) 1.92 0.36-3.74 uIU/mL Whole Blood Glucose 158 H 70-110 MG/DL C-Reactive Protein, Quantitative 18.10 H 0.5-3.0 mg/L Lactic Acid Level 3.0 H 0.8-2.5 mmol/L B-Type Natriuretic Peptide 27 0-100 pg/mL DIAGNOSTICS / RADIOLOGY RESULTS: PROCEDURE: WRST 3V LT - WRIST COMP 3+VWS LT WRIST COMP 3+VWS LT HISTORY: Left wrist pain COMPARISON: None TECHNIQUE: 3 images of left wrist were obtained. FINDINGS: Comminuted fractures are seen involving the distal radius with articular extension. There is fracture involving the distal ulna. No dislocation is seen. Degenerative changes are seen. IMPRESSION: 1. Findings as described above. PLAN NEURO: Minimize central acting medications as possible. Maintain fall precautions, adequate lighting during the day PULMONARY: Supplemental 02 as needed. Maintain aspiration precautions at all times CARDIOVASCULAR: Follow hemodynamics. Vital signs per facility protocol GI & NUTRITION: Continue with nutritional support. Continue stool softeners and laxatives as needed. KIDNEYS & ELECTROLYTES: Strict monitoring of intake, output and overall fluid balance. Avoid nephrotoxic medications to the extent possible. Medications to be dosed according to renal function. Monitor electrolytes and replace as needed ENDOCRINE: Maintain blood glucose between 100-180 at all times. Hypoglycemia protocol in place Hemoglobin A1c INFECTIOUS DISEASE: Trend temperature, WBC and procalcitonin level Follow cultures, deescalate antibiotics as soon as possible. Panculture if new onset fever Urine culture Levaquin 750 mg IV daily for cystitis ONCOLOGY/HEMATOLOGY/COAGULATION: Monitor for s/s of bleeding Monitor hemoglobin, coagulation studies as needed SKIN: Pressure ulcer prevention per facility protocol Specialty mattress ORTHO/REHAB: Continue PT/OT Prophylaxis: Continue GI and DVT prophylaxis Pepcid and lovenox Code Status: Full Resuscitation Disposition: IOANA BOOKER NP Dec 08, 2024 10:48
[2024-12-08] MEDS: MAGNESIUM 2GM PREMIX 50ML 50 ML IV PRN (13:08)
--- NOTE | 2024-12-08 17:21 | CONS ---
CONSULTATION NOTE Date of Service: Dec 08, 2024 Reason for Consultation: Left distal radius fracture Requesting Physician: HISTORY OF PRESENT ILLNESS: 74-year-old female status post ground level fall on 12/06/2024. Patient states she sustained an injury to her left wrist at that time but did not seek medical care. She came into the emergency room after an allergic reaction amoxicillin. X-rays were obtained at that time that showed a fracture of the left distal radius for which Orthopedics was consulted. The ER applied a sugar tong splint to left wrist at my request. REVIEW OF SYSTEMS CONSTITUTIONAL: Denies fever, chills, or fatigue. HEAD/FACE: No signs of trauma. EENT: Denies eye pain, blurred vision, double vision, or light sensitivity. RESPIRATORY: Reports shortness of breath, cough CARDIOVASCULAR: Denies chest pain, palpitation, syncope GASTROINTESTINAL/ABDOMINAL: Denies abdominal pain, constipation, diarrhea, nausea or vomiting GENITOURINARY: Denies dysuria or hematuria. MUSCULOSKELETAL: Reports joint pain, tenderness, and trauma. INTEGUMENTARY: Denies rash or itchiness NEUROLOGICAL/PSYCH: Denies anxiety, depression, heat or cold intolerance. PAST MEDICAL HISTORY: Hypertension, diabetes, hyperlipidemia PAST SURGICAL HISTORY: Hysterectomy, cholecystectomy, x2 PAST SOCIAL HISTORY: Denies tobacco alcohol or illicit drug use. Lives with daughter and grand kids - . Independent ambulation prior to injury. FAMILY HISTORY: Noncontributory Coded Allergies: amoxicillin (Unverified Allergy, Unknown, 12/06/24) PHYSICAL EXAM EYES: Anicteric. HENT: Moist Oral mucosa NECK: Supple LUNGS: Nonlabored breathing CARDIOVASCULAR: Regular rate ABDOMEN: Nondistended CENTRAL NERVOUS SYSTEM: Awake, alert, oriented x 3. No focal deficits. SKIN: No lacerations, no abrasions, no ecchymosis LYMPHATICS: No peripheral lymphadenopathy MUSCULOSKELETAL: Left upper extremity has a sugar-tong splint in place that does limit range motion of her thumb. Brisk capillary refill x5. Moderate edema in the fingers. Motor intact in ulnar, PIN, ain nerve distributions with a week muscle function. Sensation intact to light touch throughout. Sling in place with the hand in a dependent position. EXTREMITIES: No cyanosis or clubbing BACK: Deferred GENITOURINARY: Deferred Vital Sign (Last 24 Hours) 12/07/24 12/08/24 20:40 16:00 Temp 98.2 Pulse 83 Resp 18 B/P (MAP) 155/78 Pulse Ox 95 O2 Delivery Room Air O2 Flow Rate 0 FiO2 21 Intake & Output (last 24hrs) 12/07/24 12/07/24 12/08/24 15:00 23:00 07:00 Intake Total 997.0 ml Balance 997.0 ml LABS: Laboratory: Test 12/08/24 16:46 12/08/24 05:37 12/07/24 08:54 12/06/24 21:51 Range/Units Whole Blood Glucose 155 H 70-110 MG/DL White Blood Count 8.4 # 4.8-10.8 K/uL Red Blood Count 3.98 L 4.00-5.50 MIL/uL Hemoglobin 12.4 12.0-16.0 g/dL Hematocrit 35.9 L 36-48 % Mean Corpuscular Volume 90.2 79-99 fL Mean Corpuscular Hemoglobin 31.2 27.0-33.0 pg Mean Corpuscular Hemoglobin Concent 34.5 32.0-36.0 g/dL Red Cell Distribution Width 12.9 11.0-15.5 % Platelet Count 200 130-400 K/uL Mean Platelet Volume 11.0 H 7.5-10.5 fL Nucleated Red Blood Cells 0.0 0.0-0.19 % Sodium Level 141 136-145 mmol/L Potassium Level 3.7 3.5-5.1 mmol/L Chloride Level 108 101-111 mmol/L Carbon Dioxide Level 25 21-32 mmol/L Blood Urea Nitrogen 10 7-18 mg/dL Creatinine 0.5 0.5-1.0 mg/dL Glomerular Filtration Rate Calc 97 >90 mL/min Random Glucose 159 H 70-105 mg/dL Total Calcium 8.4 L 8.5-10.1 mg/dL Magnesium Level 1.70 L 1.80-2.40 mg/dL Total Bilirubin 0.6 # 0.2-1.0 mg/dL Aspartate Amino Transf (AST/SGOT) 23 10-37 U/L Alanine Aminotransferase (ALT/SGPT) 25 12-78 U/L Alkaline Phosphatase 86 50-136 U/L Total Protein 6.2 6.0-8.3 g/dL Albumin 2.8 L 3.5-5.0 g/dL Thyroid Stimulating Hormone (TSH) 1.92 0.36-3.74 uIU/mL C-Reactive Protein, Quantitative 18.10 H 0.5-3.0 mg/L Lactic Acid Level 3.0 H 0.8-2.5 mmol/L B-Type Natriuretic Peptide 27 0-100 pg/mL Test 12/06/24 20:21 12/06/24 19:00 12/06/24 18:23 Range/Units Urine Color LIGHT-YELLOW YELLOW Urine Appearance CLOUDY H CLEAR Urine pH 6.0 5.0-8.0 Urine Specific [place] 1.011 1.001-1.031 Urine Protein 30 H NEGATIVE mg/dL Urine Glucose (UA) TRACE H NEGATIVE mg/dL Urine Ketones NEGATIVE NEGATIVE mg/dL Urine Occult Blood +- (TRACE) H NEGATIVE Urine Nitrate NEGATIVE NEGATIVE Urine Bilirubin NEGATIVE NEGATIVE mg/dL Urine Urobilinogen 0.2 0.2-1.0 mg/dL Urine Leukocyte Esterase 25 H NEGATIVE [place]/uL Urine RBC 0-1 0-1 /HPF Urine WBC 6-10 H 0-1 /HPF Urine Squamous Epithelial Cells FEW 0-2 /HPF Urine Other Crystals (Auto) 2 None Seen /HPF Urine Bacteria MOD None Seen /HPF Urine Hyaline Casts 2-5 H 0-1 /LPF /LPF Urine Other Casts 4 None Seen /LPF Influenza Type A Antigen Negative For Type A NEGATIVE Influenza Type B Antigen Negative For Type B NEGATIVE SARS-CoV-2, RNA, NAAT NEGATIVE SARS CoV-2 NEGATIVE Immature Granulocyte % (Auto) 1.9 H 0-1 % Neutrophils (%) (Auto) 86.6 H 40.0-77.0 % Lymphocytes (%) (Auto) 8.0 L 21.0-51.0 % Monocytes (%) (Auto) 2.9 L 3.0-13.0 % Eosinophils (%) (Auto) 0.3 0.0-8.0 % Basophils (%) (Auto) 0.3 0.0-5.0 % Neutrophils # (Auto) 14.9 H 1.8-7.7 K/uL Lymphocytes # (Auto) 1.4 1.0-4.8 K/uL Monocytes # (Auto) 0.5 0.1-1.0 K/uL Eosinophils # (Auto) 0.06 0.00-0.70 K/uL Basophils # (Auto) 0.05 0.00-0.20 K/uL Absolute Immature Granulocyte (auto 0.33 0-1 K/uL White Cell Morphology Comment See comments DIAGNOSTICS / RADIOLOGY: Three views of the left wrist with a minimally displaced left distal radius fracture. ASSESSMENT: 74-year-old left-hand dominant female with a left distal radius fracture PLAN: I discussed with the patient the expected course of fracture healing and a proximally three months. We discussed that she would be in her current splint for the 1st three weeks. We can see her in 2 weeks in the [facility] clinic. We discussed proper sling wear and trying to maintain the hand above the elbow in the elbow above the heart level whenever she is supine in bed. We discussed the importance of finger and shoulder range motion to prevent stiffness and frozen shoulder. We discussed that she will be downgraded to a removable splint and a proximally three weeks to allow for a elbow range motion. GHADA SIEGEL MD Dec 08, 2024 17:21
--- NOTE | 2024-12-08 19:55 | NUR ---
MEDS SHIFT ASSESSMENT DONE, PLEASE REFER TO CHART. DUE MEDS ADMINISTERED, TOLERATED WELL. ASSISTED PT TO THE RESTROOM THEN BACK TO BED. KEPT LEFT ARM, SPLINTED ON AN ARM SLING. KEPT RESTED. CALL LIGHT WITHIN REACH.
[2024-12-08] MEDS ORDERED: GLIP5TAB15 PO (22:26)
[2024-12-08] MEDS ORDERED: CAND16TA28 PO (22:26)
[2024-12-08] MEDS ORDERED: LINA5TAB PO (22:26)
[2024-12-08] MEDS ORDERED: ROSU5TAB51 PO (22:26)
[2024-12-09 00:04] VITALS: BP 152/72; PULSE 86; RESP 18; TEMP 98.9
[2024-12-09 04:03] VITALS: BP 162/85; PULSE 81; RESP 17; TEMP 98.4
--- NOTE | 2024-12-09 05:32 | NUR ---
ROUNDS PT ALREADY AWAKE. DENIES ANY CONCERNS AT THIS TIME. NO DISTRESS NOTED. NEW IVF BAG HUNG. KEPT RESTED AND COMFORTABLE IN BED. CALL LIGHT WITHIN REACH. FOR MORE CARE.
[2024-12-09] MEDS: LoSARTan 100 MG TABLET PO SCH (07:55)
[2024-12-09 08:00] VITALS: O2SAT 97
[2024-12-09 08:03] VITALS: BP 147/84; PULSE 83; RESP 18; TEMP 98.5
[2024-12-09 11:37] VITALS: BP 152/73; PULSE 84; RESP 16; TEMP 98.1
[2024-12-09] MEDS: acetaMINOPHEN WITH coDEINE 1 TAB TAB PO PRN (12:49)
--- NOTE | 2024-12-09 13:01 | DS ---
[facility] DISCHARGE SUMMARY Date Patient Seen: Dec 09, 2024 Time of Visit: 13:01 Supervising Physician: Dr. Miguel A Schneider Primary Care Physician: DR. ADRIANA KINGSLEY Outpatient Specialists: [ ] Inpatient Consults: Dr. Galeas (Orthopedic surgeon) PROBLEM LIST: Allergic reaction to amoxicillin, resolved Pre-syncope episode, secondary to allergic reactive, radiological workup negative S/P fall at home due to above Acute left distal radius fracture, sugar splint per ortho, follow up in three weeks Acute cystitis, completed 3 days of IV ABX Leukocytosis present on admission Diabetes mellitus type 2 Hypertension Hyperlipidemia Morbid obesity, BMI 39.3 HPI (per admitting provider): Patient is a 74-year-old female with past medical history significant for diabetes type 2, hypertension, hyperlipidemia, and a surgical history of hysterectomy, cholecystectomy, brought to the emergency department via EMS for evaluation of allergic reaction. Patient reports that for the past two days, multiple family member has been having upper respiratory symptoms and she decided to take amoxicillin for herself due to upper respiratory symptoms. Patient developed shortness of breath, flushing to the skin following the amoxicillin p.o. intake. Patient reports that she forgot that she was allergic to amoxicillin. Per ER report, patient received epinephrine and Benadryl EN route at the time of the assessment, patient reports feeling better and all the allergic symptoms resolved. Patient denies fever, chills, nausea, vomiting, diarrhea, palpitation, shortness of breath, diarrhea, constipation, dysuria, or any other symptoms. The workup in the emergency department shows a temperature of 99, heart rate of 107, WBC of 17.2, glucose of 187, lactic acid of 5.2, UA shows UTI. In the emergency department, patient received NS 30 mL/kilogram bolus and Levaquin 750 mg IV. Patient will be admitted to medical floor for further evaluation and treatment. HOSPITAL COURSE: Patient was admitted s/p fall after taking oral amoxicillin, states she felt warm and felt very weak. States she forgot she was allergic to amoxicillin and took her granddaughters medication. She was found to have left distal radius fracture. Dr. Galeas was consulted and ordered a sugar splint and recommended for patient to follow up in three weeks in outpatient setting. She received 3 days of IV ABX and urine culture is a contaminate. Denies any urological symptoms. Patient stable for discharge. Advised to follow up with PCP and Dr. Galeas and not to take anyone elses medications, verbalized understanding. Continued Medications: Candesartan Cilexetil (Candesartan Cilexetil) 16 Mg Tablet 1 TAB PO DAILY Glipizide (Glipizide) 5 Mg Tablet 2 TAB PO BIDMEALS Linagliptin (Tradjenta) 5 Mg Tablet 5 MG PO DAILY, TAB Rosuvastatin Calcium (Rosuvastatin Calcium) 5 Mg Tablet 1 TAB PO DAILY PHYSICAL EXAM: GENERAL: alert, weak, awake oriented x 3 HEENT: EOMI, Sclera non icteric, moist mucosa NECK: Supple, no JVD, trachea midline LUNGS: Clear breath sounds bilaterally. No wheezes HEART: Regular rate and rhythm. Normal S1 and S2, without murmurs ABD: Abdomen soft, nontender. Bowel sounds present EXT: No clubbing cyanosis or edema NEURO: AAOX3, follows commands FOLLOW-UP: Follow-up with PCP in 2-3 days Follow up with Dr. Galeas RECOMMENDATIONS: See Discharge Instructions This case was seen and discussed with my supervising physician. More than 30 minutes spent on discharge process, including evaluation of the patient, discussion with nursing staff, medication reconciliation and follow-up appointments IOANA ALFONSO NP Dec 09, 2024 13:01
[2024-12-09] MEDS ORDERED: atorVAStatin 20 MG TABLET PO SCH (21:00)
--- NOTE | 2024-12-12 16:40 | NUR ---
Transitional Phone Call Attempted to call twice, left message [phone] and no return call.
== END 2024-12-09 17:20 | disposition home or self-care (01) | DRG 872 ==
LOC: EDH 17:25 → EDHIP 21:39 → 3CH 12-07 18:50
PROVIDERS: ADMIT Internal Medicine; ATTEND Internal Medicine
DX: A41.9 Sepsis, unspecified organism (principal); S52.502A Unspecified fracture of the lower end of left radius, initial encounter for closed fracture; E87.20 Acidosis, unspecified; N30.00 Acute cystitis without hematuria; E66.01 Morbid (severe) obesity due to excess calories; E78.5 Hyperlipidemia, unspecified; I10 Essential (primary) hypertension; R65.20 Severe sepsis without septic shock; E11.65 Type 2 diabetes mellitus with hyperglycemia; W18.39XA Other fall on same level, initial encounter; T36.0X5A Adverse effect of penicillins, initial encounter; Z88.0 Allergy status to penicillin; Z90.710 Acquired absence of both cervix and uterus; Y93.89 Activity, other specified; Z68.38 Body mass index [BMI] 38.0-38.9, adult; Y92.89 Other specified places as the place of occurrence of the external cause; Y99.8 Other external cause status
CPT/HCPCS: 36415; 70450; 71045; 72170; 73030; 73110; 80048; 80053; 81001; 82948; 83605; 83735; 83880; 84443; 85025; 85027; 86140; 87040; 87086; 87635; 87804; 93306; 93356; 93880; 99285; G0378; J1650; J1815; J1956; J2405; J3475; J3490; J7030